=== PATIENT | female | born 1950 | race Caucasian/White ===

== ENCOUNTER 2017-10-02 14:35 | Emergency (ER) | payer OTHER ==
[~2017-10-02] VITALS: Ht 134.6 cm; Wt 63.5 kg
[~2017-10-02 14:35] MED LIST: ASPIR 8181 MG; CIPROFLOXACIN500 MG; LAC PO; LEVAQUIN750 MG PO; LOR; METFORMIN ER500 M1; ZESTRIL20 MG
[2017-10-02 14:39] VITALS: Ht 134.6 cm; Wt 63.5 kg
[2017-10-02 15:36] LABS: CALCIUM 8.9 mg/dL (8.5-10.1); CHLORIDE SERUM 102 mmol/L (98-107); CREATININE SERUM 0.9 mg/dL (0.6-1.0); GFR1 > 60 mL/min; GLUCOSE SERUM 218 mg/dL (74-106); POTASSIUM SERUM 3.8 mmol/L (3.5-5.1); SODIUM SERUM 138 mmol/L (136-145)
[2017-10-02 16:30] VITALS: BP 141/74
== END 2017-10-02 16:40 | disposition home or self-care (01) ==
LOC: ED 14:35
PROVIDERS: Emergency Medicine
DX: R42 Dizziness and giddiness (principal); R51 Headache; I10 Essential (primary) hypertension; E11.9 Type 2 diabetes mellitus without complications
CPT/HCPCS: J8597

== ENCOUNTER 2017-12-01 19:54 | Emergency (ER) | payer OTHER ==
[~2017-12-01] VITALS: Ht 144.8 cm; Wt 64.0 kg
[2017-12-01 20:07] VITALS: BP 127/69; Ht 144.8 cm; Wt 64.0 kg
== END 2017-12-01 23:59 | disposition left against medical advice (07) ==
LOC: ED 19:54
DX: Z53.21 Procedure and treatment not carried out due to patient leaving prior to being seen by health care provider (principal)

== ENCOUNTER 2018-08-30 17:00 | Emergency (ER) | payer OTHER, MEDICAID ==
[~2018-08-30] VITALS: Ht 134.6 cm; Wt 62.6 kg
[2018-08-30 17:30] VITALS: Ht 134.6 cm; Wt 62.6 kg
[2018-08-30 18:17] LABS: microscopic required? NO
[2018-08-30 18:26] LABS: UA SPECIFIC GRAVITY 1.025 (1.005-1.035); urine erythrocyte NEGATIVE (NEGATIVE)
[2018-08-30 18:32] LABS: BASOPHIL % 0.5 % (0-2); PLATELET COUNT 241 x10^3mcL (130-400)
[2018-08-30 18:37] LABS: CALCIUM 8.1 mg/dL (8.5-10.1); CARBON DIOXIDE 27.5 mmol/L (21-32); CHLORIDE SERUM 102 mmol/L (98-107); CREATININE SERUM 0.9 mg/dL (0.6-1.0); GFR1 > 60 mL/min; GLUCOSE SERUM 221 mg/dL (74-106); POTASSIUM SERUM 4.3 mmol/L (3.5-5.1); SODIUM SERUM 135 mmol/L (136-145)
[2018-08-30 18:42] LABS: ALBUMIN 3.4 g/dL (3.4-5.0); ALKALINE PHOSPHATASE 89 U/L (46-116); ALT/SGPT 87 U/L (14-59); AST/SGOT 41 U/L (15-37); BILIRUBIN TOTAL 0.21 mg/dL (0.20-1.00); LIPASE 177 IU/L (73-393); TOTAL PROTEIN, SERUM 7.4 g/dL (6.4-8.2)
[2018-08-30 19:38] VITALS: BP 114/62
== END 2018-08-30 19:38 | disposition home or self-care (01) ==
LOC: ED 17:00
PROVIDERS: Emergency Medicine
DX: R10.9 Unspecified abdominal pain (principal); R07.89 Other chest pain; I10 Essential (primary) hypertension; E11.9 Type 2 diabetes mellitus without complications
CPT/HCPCS: 36415; 82962; J1885; Q0092

== ENCOUNTER 2018-11-05 13:36 | Inpatient (IN) | payer OTHER, MEDICAID ==
[~2018-11-05] VITALS: Ht 147.3 cm; Wt 63.5 kg
[2018-11-05 13:43] VITALS: Ht 147.3 cm; Wt 63.5 kg
--- NOTE | 2018-11-05 13:58 | NUR ---
PT IN ED FOR DIZZINESS SINCE THIS AM UPON WAKING. STS DIZZINESS RELIEVED WHEN LAYING DOWN, EQUAL HANDGRIPS BILAT, NO FACIAL DROOP. PT SPEAKING APPROPRIATELY. DAUGHTER AT BEDSIDE. PT RESP E/U, NO DISTRESS. BRACKKEIRY AT BEDSIDE FOR MSE.
[2018-11-05 14:23] LABS: PLATELET COUNT 246 x10^3mcL (130-400); RED CELL DISTRIBUTION WIDTH 13.3 % (11.5-14.5)
--- NOTE | 2018-11-05 14:32 | NUR ---
CODE BRAIN CALLED BY . PT PLACED ON FULL BROADCAST DIRECTOR OPERATIONS AND OXYGEN. AAOX4, RESPS E/U. DAUGHTER AT BEDSIDE.
[2018-11-05 14:38] LABS: CALCIUM 8.8 mg/dL (8.5-10.1); CARBON DIOXIDE 25.1 mmol/L (21-32); CHLORIDE SERUM 107 mmol/L (98-107); CREATININE SERUM 0.6 mg/dL (0.6-1.0); GFR1 > 60 mL/min; GLUCOSE SERUM 177 mg/dL (74-106); POTASSIUM SERUM 4.1 mmol/L (3.5-5.1); SODIUM SERUM 143 mmol/L (136-145)
[2018-11-05 14:45] LABS: ALBUMIN 3.4 g/dL (3.4-5.0); ALKALINE PHOSPHATASE 119 U/L (46-116); ALT/SGPT 73 U/L (14-59); AST/SGOT 39 U/L (15-37); BILIRUBIN TOTAL 0.21 mg/dL (0.20-1.00); TOTAL PROTEIN, SERUM 7.7 g/dL (6.4-8.2)
--- NOTE | 2018-11-05 14:51 | NUR ---
RETURNED FROM CT WITHOUT INCIDENCE. CONNECTED TO MONITOR. DAUGHTER AT BEDSIDE.
[2018-11-05 15:01] LABS: MONOCYTE 6 % (0-7); SEGMENTED NEUTROPHILS 64 % (37-75); rbc morphology (normal/abnorm) NORMAL (NORMAL)
[2018-11-05 15:02] LABS: PLATELET MORPHOLOGY PLATELETS NORMAL
--- NOTE | 2018-11-05 15:53 | NUR ---
PER , NO IV NEEDED AT THIS TIME. AMBULATED WITH PT TO CHECK GAIT. PT AMBULATING WITH STEADY GAIT
--- NOTE | 2018-11-05 16:18 | NUR ---
TELE NEURO IN PROGRESS
--- NOTE | 2018-11-05 16:55 | NUR ---
PT TAKEN TO CT VIA JING
--- NOTE | 2018-11-05 17:12 | NUR ---
RETURNED FROM CT WITHOUT INCIDENCE
--- NOTE | 2018-11-05 19:16 | NUR ---
GAVE REPORT TO SAURABH RAMIREZ
--- NOTE | 2018-11-05 19:22 | NUR ---
REPORT GIVEN BY DEAN WILEY. PT LAYING ON GURNEY IN POSITION OF COMFORT. PT IN NAD, BREATHING EVEN AND UNLABORED. PT A&0X4, SPEAKING FULL CLEAR SENTENCES. FAMILY AT BEDSIDE. WILL CONTINUE TO MONITOR.
[2018-11-05] MEDS ORDERED: ATORVASTATIN CA40 M1 PO (19:32)
[2018-11-05] MEDS ORDERED: JANUVIA25 M1 PO (19:33)
[2018-11-05 19:55] LABS: UA SPECIFIC GRAVITY 1.015 (1.005-1.035); microscopic required? YES; urine erythrocyte NEGATIVE (NEGATIVE)
[2018-11-05 20:04] LABS: AMPHETAMINE QUAL UR NONE DETECTED (See below)
[2018-11-05 20:10] LABS: MAGNESIUM 1.7 mg/dL (1.8-2.4); PHOSPHOROUS 3.7 mg/dL (2.5-4.9)
[2018-11-05 20:14] LABS: CHOLESTEROL/HDL RATIO 1.9
[2018-11-05 20:17] LABS: T3 TOTAL 1.34 ng/mL
[2018-11-05 20:20] LABS: FREE T4 0.97 ng/dL (0.76-1.46); FREE THYROXINE INDEX 2.6 ug/dL (1.4-4.5); T4(THYROXINE) 7.8 ug/dL (4.7-13.3)
--- NOTE | 2018-11-05 20:35 | NUR ---
REPORT CALLED TO RADHAMES WILEY.
--- NOTE | 2018-11-05 20:52 | NUR ---
PT TRANSFERED TO TELE BED 240B VIA GURNEY AT THIS TIME. PT IN NAD. BREATHING EVEN AND UNLABORED. PT A&0X4, SPEAKING FULL CLEAR SENTENCES. PT AND FAMILY VERBALIZED UNDERSTANDING OF PLAN OF CARE. PT ACCOMPANIED BY AROLDO RN, MEENA EMT, AND FAMILY. IV INTACT AND PATENT WITH NO SIGNS OF INFILTRATION.
[2018-11-05 21:12] VITALS: BP 153/75
--- NOTE | 2018-11-05 21:16 | NUR ---
RECEIVED PT FROM ED VIA JAYLYN. ORIENTED PT TO ROOM AND SURROUNDINGS. IV NOTED TO LAC PATENT AND INTACT. TELE 5 PLACED ON PT READING NSR. INSTRUCTED PT ON THE USE OF CALL LIGHT FOR ASSISTANCE. ENDORSED PT TO PRIMARY NURSE RADHAMES
--- NOTE | 2018-11-05 21:17 | NUR ---
RECEIVED PT FROM SAURABH JOHNSON. PT A/OX4. DENIES PAIN. DENIES SOB ON RA. IV PATENT AND INTACT. ORIENTED PT TO ROOM AND SURROUNDINGS. CALL LIGHT WITHIN REACH, BED IN LOW POSITION. FAMILY AT BEDSIDE. WILL CONTINUE TO MONITOR.
--- NOTE | 2018-11-06 00:15 | NUR ---
PT RESTING IN NO ACUTE DISTRESS. RR EVEN/UNLABORED. CALL LIGHT WITHIN REACH, BED IN LOW POSITION. WILL CONTINUE TO MONITOR.
[2018-11-06 06:34] VITALS: BP 138/53
[2018-11-06 06:53] LABS: CALCIUM 8.3 mg/dL (8.5-10.1); CARBON DIOXIDE 22.8 mmol/L (21-32); CHLORIDE SERUM 112 mmol/L (98-107); CREATININE SERUM 0.6 mg/dL (0.6-1.0); GFR1 > 60 mL/min; GLUCOSE SERUM 98 mg/dL (74-106); MAGNESIUM 1.9 mg/dL (1.8-2.4); POTASSIUM SERUM 3.8 mmol/L (3.5-5.1); SODIUM SERUM 148 mmol/L (136-145)
--- NOTE | 2018-11-06 07:15 | NUR ---
RECEIVED PT FROM SHIFT NURSE ASLEEP BUT AROUSABLE. NO ACUTE DISTRESS NOTED. IV INTACT AND PATENT. BED IN LOW POSITION. CALL LIGHT WITHIN REACH. WILL CONITNUE TO MONITOR.
[2018-11-06 08:33] LABS: BASOPHIL % 0.5 % (0-2); PLATELET COUNT 226 x10^3mcL (130-400); RED CELL DISTRIBUTION WIDTH 13.4 % (11.5-14.5)
[2018-11-06 09:04] VITALS: BP 134/48
--- NOTE | 2018-11-06 09:30 | NUR ---
PT AMBULATIING IN HALLWAY WITH PHYSICAL THERAPIST.
--- NOTE | 2018-11-06 10:29 | NUR ---
PT RESTING IN BED. NO ACUTE DISTRESS NOTED. IV INTACT AND PATENT. CALL LIGHT WITHIN REACH. WILL CONTINUE TO MONITOR.
[2018-11-06] MEDS ORDERED: MECLIZINE HCL12.5 MG PO (11:19)
[2018-11-06 13:13] VITALS: BP 128/47
--- NOTE | 2018-11-06 13:22 | NUR ---
PT LYING IN BED TALKING WITH DAUGHTER. NO ACUTE DISTRESS. CALL LIGHT WITHIN REACH. WILL CONITNUE TO MONITOR.
--- NOTE | 2018-11-06 16:23 | NUR ---
PT A/OX4 UPON DC. NO C/O OF DIZZINESS. IV REMOVED AND CATH INTACT. NEW RX GIVEN. FOLLOW UP AT GIVEN. EDUCATION PROVIDED. PT VERBALIZED UNDERSTANDING. PERSONAL BELONGINGS TAKEN HOME. ACCOMPANIED BY DAUGHTER AND ENVIRONMENTAL PROJECTS ADVISOR TO LOBBY.
--- NOTE | 2018-11-07 09:30 | NUR ---
ECHOCARDIOGRAM NOT DONE-DISCHARGED
== END 2018-11-06 16:19 | disposition home or self-care (01) | DRG 73 ==
LOC: ED 13:36 → DU 19:28
PROVIDERS: Emergency Medicine; ADMIT Internal Medicine
DX: G90.8 Other disorders of autonomic nervous system (principal); N17.0 Acute kidney failure with tubular necrosis; E11.65 Type 2 diabetes mellitus with hyperglycemia; E83.42 Hypomagnesemia; E83.51 Hypocalcemia; I10 Essential (primary) hypertension; E78.5 Hyperlipidemia, unspecified; Z68.34 Body mass index [BMI] 34.0-34.9, adult; Z79.84 Long term (current) use of oral hypoglycemic drugs
CPT/HCPCS: 82962; 83880; 84439; G0378; J7030; Q0092; Q9967